=== PATIENT | male | born 1975 | race Caucasian/White ===

== ENCOUNTER 2021-07-18 15:05 | Emergency (ER) | payer OTHER, SELFPAY ==
[2021-07-18 15:34] VITALS: BP 168/100; PULSE 108; RESP 20; TEMP 37.6; O2SAT 98
== END 2021-07-18 15:55 | disposition left against medical advice (07) ==
LOC: EXPBETH 15:08
PROVIDERS: Emergency Provider Nurse Practitioner; PCP Internal Medicine
DX: R43.8 Other disturbances of smell and taste (principal); Z20.822 Contact with and (suspected) exposure to COVID-19
CPT/HCPCS: 87081; 87420; 87426; 87804; 87880; 99199; C9803